=== PATIENT | female | born 1930 | race Caucasian/White ===

== ENCOUNTER 2018-03-22 16:39 | Inpatient (IN) | payer OTHER ==
[~2018-03-22] VITALS: Ht 160 cm; Wt 64.9 kg
[~2018-03-22 16:39] MED LIST: CARV3.1212 PO; FURO40TA6 PO; LISI-167 PO; OXYGEN; POTA20TA6 PO; SPIR25TA PO
[2018-03-22 19:00] LABS: BASOPHILS # (AUTO) 0.06 x10^3/uL (0-0.1); BASOPHILS % (AUTO) 1 % (0-1); EOSINOPHILS # (AUTO) 0.17 x10^3/uL (0-0.4); EOSINOPHILS % (AUTO) 3 % (1-7); LYMPHOCYTES # (AUTO) 1.64 x10^3/uL (1-3.4); LYMPHOCYTES % (AUTO) 27 % (22-44); MD NO; MEAN CORPUSCULAR HEMOGLOBIN 32.3 pg (27.0-34.8); MEAN CORPUSCULAR HGB CONC 33.5 g/dL (32.4-35.8); MEAN CORPUSCULAR VOLUME 96.4 fL (80-100); MEAN PLATELET VOLUME 8.7 fL (7.4-10.4); MONOCYTES # (AUTO) 0.57 x10^3/uL (0.2-0.8); MONOCYTES % (AUTO) 9 % (2-9); NEUTROPHILS # (AUTO) 3.67 x10^3/uL (1.8-6.8); NEUTROPHILS % (AUTO) 60 % (42-75); PLATELET COUNT 191 x10^3/uL (130-400); RED CELL DISTRIBUTION WIDTH 16.9 % (9.6-15.2)
[2018-03-22] MEDS ORDERED: ONDANSETRON ODT 4 MG PO PRN (19:00)
[2018-03-22] MEDS ORDERED: DOCUSATE 100 MG CAPSULE PO PRN (19:00)
[2018-03-22] MEDS ORDERED: DIPHENHYDRAMINE 50 MG CAPSULE PO PRN (19:00)
[2018-03-22] MEDS ORDERED: ENOXAPARIN 40 MG/0.4 ML SQ SCH (19:00)
[2018-03-22] MEDS ORDERED: ONDANSETRON 2MG/ML, 2ML IV PRN (19:00)
[2018-03-22] MEDS ORDERED: PLEASE ENTER HEIGHT AND WEIGHT MC SCH (19:00)
[2018-03-22 19:08] LABS: INTERNATIONAL NORMALIZED RATIO 1.09 (0.93-1.1); PROTHROMBIN TIME 11.3 Seconds (9.6-11.5)
[2018-03-22 19:09] LABS: ALANINE AMINOTRANSFERASE 14 U/L (12-78); ALBUMIN 3.2 g/dL (3.4-5.0); ANION GAP 8 mmol/L (5-15); CALCIUM 8.1 mg/dL (8.5-10.1); CHLORIDE 108 mmol/L (98-107)
[2018-03-22 19:17] VITALS: BP 168/81
[2018-03-22 19:20] LABS: ALKALINE PHOSPHATASE 86 U/L (45-117); BILIRUBIN,TOTAL 0.5 mg/dL (0.2-1.0); TOTAL PROTEIN 7.4 g/dL (6.4-8.2)
[2018-03-22] MEDS ORDERED: CEPH-368 PO (19:50)
[2018-03-22] MEDS: SPIRONOLACTONE 25 MG TABLET PO SCH (20:26)
[2018-03-22] MEDS: SODIUM CHLORIDE FLUSH 10ML SYR IVF SCH (20:26)
[2018-03-22 21:58] VITALS: BP 166/54
[2018-03-22] MEDS: CARVEDILOL 3.125 MG TABLET PO SCH (21:59)
[2018-03-22] MEDS: DIPHENHYDRAMINE 25 MG CAPSULE PO PRN (22:17)
[2018-03-22 23:24] VITALS: BP 164/81
[2018-03-23 00:33] VITALS: BP 145/69
[2018-03-23 05:20] VITALS: BP 164/78
[2018-03-23] MEDS: CARVEDILOL 3.125 MG TABLET PO SCH ×2 (05:28→17:31)
[2018-03-23 05:37] LABS: CHOL/HDL RATIO 2.9; LDL/HDL RATIO 1.6 (0.5-3.0)
[2018-03-23] MEDS ORDERED: CARVEDILOL 3.125 MG TABLET PO SCH (06:00)
[2018-03-23 07:29] VITALS: BP 102/47
[2018-03-23] MEDS: SPIRONOLACTONE 25 MG TABLET PO SCH ×2 (09:04→19:54)
[2018-03-23] MEDS: SODIUM CHLORIDE FLUSH 10ML SYR IVF SCH ×2 (09:04→19:36)
[2018-03-23 14:27] VITALS: BP 148/76
[2018-03-23 18:47] VITALS: BP 164/71
[2018-03-23 19:37] VITALS: BP 146/70
[2018-03-23] MEDS: ENOXAPARIN 30 MG/0.3 ML SQ SCH (19:54)
[2018-03-23] MEDS: ACETAMINOPHEN 325 MG TABLET PO PRN (23:06)
[2018-03-23] MEDS: DIPHENHYDRAMINE 25 MG CAPSULE PO PRN (23:06)
[2018-03-24 00:57] VITALS: BP 146/94
[2018-03-24 05:57] VITALS: BP 129/67
[2018-03-24] MEDS: CARVEDILOL 3.125 MG TABLET PO SCH ×2 (05:59→16:57)
[2018-03-24 08:09] VITALS: BP 146/64
[2018-03-24] MEDS: SPIRONOLACTONE 25 MG TABLET PO SCH ×2 (09:25→16:57)
[2018-03-24] MEDS: SODIUM CHLORIDE FLUSH 10ML SYR IVF SCH ×2 (09:25→20:08)
[2018-03-24] MEDS ORDERED: CEFAZOLIN PMX 1GM/50ML 50 ML IVPB ONE (11:00)
[2018-03-24 15:28] VITALS: BP 156/77
[2018-03-24] MEDS: ENOXAPARIN 30 MG/0.3 ML SQ SCH (19:56)
[2018-03-24 20:03] VITALS: BP 161/73
[2018-03-24] MEDS: DIPHENHYDRAMINE 25 MG CAPSULE PO PRN (22:51)
[2018-03-24] MEDS: ACETAMINOPHEN 325 MG TABLET PO PRN (22:51)
[2018-03-24] MEDS ORDERED: SODIUM CHLORIDE 0.9% 1,000 ML IV SCH (23:59)
[2018-03-25 02:31] VITALS: BP 120/63
[2018-03-25] MEDS: CARVEDILOL 3.125 MG TABLET PO SCH ×2 (05:22→16:46)
[2018-03-25] MEDS: SPIRONOLACTONE 25 MG TABLET PO SCH ×2 (07:16→16:46)
[2018-03-25 07:51] VITALS: BP 133/65
[2018-03-25] MEDS: SODIUM CHLORIDE FLUSH 10ML SYR IVF SCH ×2 (09:02→20:23)
[2018-03-25] MEDS ORDERED: LIDOCAINE/PF 1%, 30ML ONE (11:45)
[2018-03-25] MEDS ORDERED: FENTANYL PF 100 MCG/2ML ONE (11:45)
[2018-03-25] MEDS ORDERED: MIDAZOLAM 1 MG/ML, 5ML ONE (11:45)
[2018-03-25] MEDS ORDERED: CEFAZOLIN 1,000 MG ONE (11:45)
[2018-03-25] MEDS ORDERED: CEFAZOLIN PMX 1GM/50ML 50 ML ONE (11:45)
[2018-03-25 14:31] VITALS: BP 121/78
[2018-03-25 19:23] VITALS: BP 154/84
[2018-03-25] MEDS: ENOXAPARIN 30 MG/0.3 ML SQ SCH (20:23)
[2018-03-25] MEDS: DIPHENHYDRAMINE 25 MG CAPSULE PO PRN (22:05)
[2018-03-25] MEDS: ACETAMINOPHEN 325 MG TABLET PO PRN (22:05)
[2018-03-26 03:56] VITALS: BP 110/55
[2018-03-26 05:36] VITALS: BP 135/71
[2018-03-26] MEDS: CARVEDILOL 3.125 MG TABLET PO SCH (05:39)
[2018-03-26 07:47] VITALS: BP 129/73
[2018-03-26] MEDS ORDERED: SPIR25TA PO (07:51)
[2018-03-26] MEDS: SPIRONOLACTONE 25 MG TABLET PO SCH (08:40)
[2018-03-26] MEDS: SODIUM CHLORIDE FLUSH 10ML SYR IVF SCH (08:41)
== END 2018-03-26 11:35 | disposition home or self-care (01) | DRG 261 ==
LOC: 5SO 16:52 → DCLOUNGE 03-26 11:30
PROVIDERS: ADMIT Internal Medicine Cardiovascular Disease; ATTEND Internal Medicine Cardiovascular Disease
PROC: 02WA0MZ Revision of Cardiac Lead in Heart, Open Approach (ICD-10-PCS; principal; 2018-03-25)
DX: T82.110A Breakdown (mechanical) of cardiac electrode, initial encounter (principal); I13.0 Hypertensive heart and chronic kidney disease with heart failure and stage 1 through stage 4 chronic kidney disease, or unspecified chronic kidney disease; I47.2 Ventricular tachycardia; D68.69 Other thrombophilia; I50.42 Chronic combined systolic (congestive) and diastolic (congestive) heart failure; I42.9 Cardiomyopathy, unspecified; E78.5 Hyperlipidemia, unspecified; Z88.6 Allergy status to analgesic agent; Z88.2 Allergy status to sulfonamides; I08.1 Rheumatic disorders of both mitral and tricuspid valves; I44.7 Left bundle-branch block, unspecified; I48.2 Chronic atrial fibrillation; N18.9 Chronic kidney disease, unspecified; Y71.2 Prosthetic and other implants, materials and accessory cardiovascular devices associated with adverse incidents; Y92.89 Other specified places as the place of occurrence of the external cause; Z87.891 Personal history of nicotine dependence
CPT/HCPCS: 33215; 36415; 71046; 80053; 80061; 83735; 84443; 85025; 85610; 99156; G0378; J0690; J1650; J2250; J3010; J3490; Q0163; Q9967